=== PATIENT | male | born 1945 | race Caucasian/White ===

== ENCOUNTER → 2016-12-24 | Outpatient (CLI) | payer MEDICARE, OTHER ==
[~2016-12-24] MED LIST: AMLO5TAB PO; BENA20TA PO; OMEP20TA24 PO
--- NOTE | 2016-12-24 11:59 | DI ---
Indication: ITS.REASON: R39.198 UNABLE TO VOID URINE PROCEDURE: US BLADDER: Encounter: Initial Comparison: None Technique: Grayscale imaging of the bladder was performed. Findings: No debris or mass identified. Bladder was relatively decompressed initially. Prevoid bladder volume was 39.2 mL. Post void residual volume of less than 1 mL. Impression: No post void residual. .
== END ==
LOC: IMA 11:03
PROVIDERS: ATTEND Family Medicine
DX: R39.198 Other difficulties with micturition (principal)